=== PATIENT | female | born 1990 | race Caucasian/White ===

== ENCOUNTER 2020-11-07 19:44 | Outpatient (CLI) | payer OTHER | END 2020-11-07 22:26 | disposition home or self-care (01) | LOC: GENOP 19:44 | DX: O99.891 Other specified diseases and conditions complicating pregnancy (principal); R10.2 Pelvic and perineal pain; Z3A.34 34 weeks gestation of pregnancy | CPT/HCPCS: 81001; G0463 ==

== ENCOUNTER 2020-12-11 05:30 | Inpatient (IN) | payer OTHER ==
[~2020-12-11] VITALS: Ht 175.3 cm; Wt 83.9 kg
[2020-12-11 06:24] LABS: HEMOGLOBIN 12.6 gm/dl (12.3-15.3); RED BLOOD COUNT 4.42 M/UL (4.00-5.10); WHITE BLOOD COUNT 9.7 K/UL (4.5-11.0)
[2020-12-11] MEDS ORDERED: PRENATAL VITAM1 EAC3 PO (08:53)
[2020-12-11] MEDS ORDERED: FERREX 150 FOR1 EACH PO (13:24)
[2020-12-11] MEDS ORDERED: COLACE 100MG C100 MG PO (13:24)
[2020-12-11] MEDS ORDERED: IBUPROFEN800 MG PO (13:24)
[2020-12-11] MEDS ORDERED: PERCOCET 5-3251 EACH PO (13:24)
[2020-12-12 05:31] LABS: HEMOGLOBIN 10.8 gm/dl (12.3-15.3)
== END 2020-12-12 15:55 | disposition home or self-care (01) | DRG 807 ==
LOC: OB 05:30
PROVIDERS: Obstetrics & Gynecology; ADMIT Obstetrics & Gynecology
PROC: 10E0XZZ Delivery of Products of Conception, External Approach (ICD-10-PCS; principal; 2020-12-11)
PROC: 0KQM0ZZ Repair Perineum Muscle, Open Approach (ICD-10-PCS; 2020-12-11)
PROC: 3E033VJ Introduction of Other Hormone into Peripheral Vein, Percutaneous Approach (ICD-10-PCS; 2020-12-11)
PROC: 10907ZC Drainage of Amniotic Fluid, Therapeutic from Products of Conception, Via Natural or Artificial Opening (ICD-10-PCS; 2020-12-11)
PROC: 0U7C7ZZ Dilation of Cervix, Via Natural or Artificial Opening (ICD-10-PCS; 2020-12-11)
PROC: 4A1HXCZ Monitoring of Products of Conception, Cardiac Rate, External Approach (ICD-10-PCS; 2020-12-11)
DX: O24.429 Gestational diabetes mellitus in childbirth, unspecified control (principal); Z37.0 Single live birth; Z3A.39 39 weeks gestation of pregnancy; Z20.822 Contact with and (suspected) exposure to COVID-19; O70.1 Second degree perineal laceration during delivery; Z90.49 Acquired absence of other specified parts of digestive tract; Z83.3 Family history of diabetes mellitus; Z82.49 Family history of ischemic heart disease and other diseases of the circulatory system; Z80.3 Family history of malignant neoplasm of breast
CPT/HCPCS: 36415; 51702; 81001; 82962; 85014; 85018; 85025; J0595; J2590; J2795; J7030; U0003